=== PATIENT | male | born 1950 ===

== ENCOUNTER 2022-11-06 12:18 | Day surgery (SDC) | payer OTHER ==
[~2022-11-06] VITALS: Ht 165.1 cm; Wt 113.1 kg
[~2022-11-06 12:18] MED LIST: ASPI81CH PO; BUPR75 PO; HYDPAM25 PO; Inderal 20 mg T20 MG; Minipress5 MG PO; PRAZ2 PO; PROP10 PO; QUET100 PO; SERT100 PO; ZESTORETIC 20-121 EA PO
[2022-11-06] MEDS ORDERED: Lisinopril-Hct1 EAC4 PO (12:51)
[2022-11-06] MEDS ORDERED: TRAZ50 PO (12:52)
[2022-11-06] MEDS ORDERED: PRAZ2 PO (12:52)
[2022-11-06] MEDS ORDERED: OMEGA-3 1,0501 EACH PO (12:53)
--- NOTE | 2022-11-06 12:56 | NUR ---
11/06/22 1256 Tigist StephensonINE IN AT 1238 PLEKELSEY IN AT 1240
== END 2022-11-06 14:13 | disposition home or self-care (01) ==
LOC: ORSCSDS 12:18
PROVIDERS: Ophthalmology
PROC: 08RJ3JZ Replacement of Right Lens with Synthetic Substitute, Percutaneous Approach (ICD-10-PCS; principal; 2022-11-06 13:30)
DX: H25.11 Age-related nuclear cataract, right eye (principal); I12.9 Hypertensive chronic kidney disease with stage 1 through stage 4 chronic kidney disease, or unspecified chronic kidney disease; N18.9 Chronic kidney disease, unspecified; R73.03 Prediabetes; E66.01 Morbid (severe) obesity due to excess calories; Z68.41 Body mass index [BMI] 40.0-44.9, adult; Z79.899 Other long term (current) drug therapy; Z87.891 Personal history of nicotine dependence
CPT/HCPCS: 82947; J2001; J2250; J3010; J3301; J7040; V2632

== ENCOUNTER 2022-11-13 10:35 | Day surgery (SDC) | payer OTHER ==
[~2022-11-13] VITALS: Ht 167.6 cm; Wt 115.6 kg
[~2022-11-13 10:35] MED LIST changes: +Lisinopril-Hct1 EAC4 PO; +OMEGA-3 1,0501 EACH PO; +TRAZ50 PO
--- NOTE | 2022-11-13 11:50 | NUR ---
11/13/22 1150 Jose Fritz CALL LIGHT WITHIN REACH. TETRACAINE IN THE LEFT EYE AT 1144 AND PLEDGETT IN AT 1145
== END 2022-11-13 13:39 | disposition home or self-care (01) ==
LOC: ORSCSDS 10:35
PROVIDERS: Ophthalmology
PROC: 08RK3JZ Replacement of Left Lens with Synthetic Substitute, Percutaneous Approach (ICD-10-PCS; principal; 2022-11-13 13:00)
DX: H25.12 Age-related nuclear cataract, left eye (principal); I12.9 Hypertensive chronic kidney disease with stage 1 through stage 4 chronic kidney disease, or unspecified chronic kidney disease; N18.9 Chronic kidney disease, unspecified; E66.01 Morbid (severe) obesity due to excess calories; Z68.41 Body mass index [BMI] 40.0-44.9, adult; R73.03 Prediabetes; Z79.899 Other long term (current) drug therapy; Z85.038 Personal history of other malignant neoplasm of large intestine; Z87.891 Personal history of nicotine dependence
CPT/HCPCS: 82947; J2001; J2250; J3010; J3301; J7040; V2632